=== PATIENT | male | born 1970 | race Caucasian/White ===

== ENCOUNTER → 2020-06-09 16:17 | Outpatient (BNVA) | payer MEDICAID, SELFPAY | PROVIDERS: Visit Provider Internal Medicine | DX: Z86.19 Personal history of other infectious and parasitic diseases (principal); B19.20 Unspecified viral hepatitis C without hepatic coma; Z12.11 Encounter for screening for malignant neoplasm of colon; Z01.812 Encounter for preprocedural laboratory examination | CPT/HCPCS: 80053; 85025; 87522 ==

== ENCOUNTER → 2020-06-14 09:44 | Outpatient (BNVA) | payer MEDICAID, SELFPAY | PROVIDERS: Visit Provider Internal Medicine | DX: Z20.828 Contact with and (suspected) exposure to other viral communicable diseases (principal); Z01.812 Encounter for preprocedural laboratory examination | CPT/HCPCS: 87635 ==

== ENCOUNTER 2020-06-20 09:11 | Day surgery (SDC) | payer MEDICAID, SELFPAY ==
--- NOTE | 2020-06-20 08:28 | W.PM.OPSUD ---
Surgery/Procedure H&P Update DATE OF PROCEDURE: June 20, 2020 DATE H&P PERFORMED: 06/09/20 PLANNED PROCEDURE: Operation Date: 06/20/20 10:00 Proposed Procedures p Colonoscopy 90724 z12.11(Not Applicable) - Jone Aguirre MD
[2020-06-20 09:27] VITALS: BP 162/99; PULSE 59; RESP 16; TEMP 36.5; O2SAT 97
[2020-06-20] MEDS: sodium chloride 0.9% 1,000 ML 30 ML IV (09:41)
--- NOTE | 2020-06-20 10:36 | ANES.PREANE2 ---
Pre-Anesthetic Assessment Pre-Anesthetic Assessment: Height/Weight: Height 1.7 m Weight 85.729 kg Temp Pulse Resp BP Pulse Ox 97.7 F 59 L 16 162/99 97 06/20/20 09:27 06/20/20 09:27 06/20/20 09:27 06/20/20 09:27 06/20/20 09:27 Preop Diagnosis: screening Proposed Procedure: Operation Date: 06/20/20 10:00 Proposed Procedures p Colonoscopy 36096 z12.11(Not Applicable) - Jone Aguirre MD Was Beta Ashlee taken within 24 hours: N/A Last intake: Intake Last Liquid Date 06/20/20 Last Liquid Time 06:00 Last Solid Date 06/19/20 Last Solid Time 12:00 Social: Social History: Alcohol (socially.) and Tobacco Comment: 3 cig. per day. Exam: Pre-Anes Outpt Exam: alert, oriented x 3 and clear to auscultation bilaterally Airway: Submandibular: WNL Cervical ROM: WNL MP: 2 Dentition: False History/ROS: No significant history except as noted Pulmonary: Pulmonary: Asthma : : None reported Hepatic: Hepatic: Hepatitis (C) GI: GI: None reported Metabolic: Metabolic: None reported Musc/skel: Musc/skel: None reported Neuropsych: Neuropsych: Anxiety and Depression Anesthetic Plan: ASA status: 2 Anesthesia: Anesthesia Evaluation and MAC Risk of > 500 ml blood loss (7ml/kg in children): No Meds/Allergies Current Medications: Current Medications Generic Name Dose Route Start Last Admin Trade Name Freq PRN Reason Stop Dose Admin Sodium Chloride 1,000 mls @ 30 ml s/hr 06/20/20 09:30 06/20/20 09:41 Sodium Chloride 0.9% IV 30 mls/hr .Q24H LUDWIN Administration PFSH Anesthesia PFSH: Social History (Updated 06/09/20 @ 13:54 by GENESIS Ni) Smoking and tobacco status: current every day smoker Alcohol intake: former Adopted: No Marital status: Single Number of children: 1 service: No History of recent travel: No Data Anesthesia Cardiac Studies: No Data to Display
[2020-06-20 11:04] VITALS: BP 118/87; PULSE 90; RESP 16; TEMP 36.5; O2SAT 97
[2020-06-20 11:18] VITALS: BP 120/92; PULSE 79; RESP 18; TEMP 36.5; O2SAT 96
--- NOTE | 2020-06-20 11:36 | ANE.PACU2 ---
Inpatient post-anesthesia follow up: Airway intact: Yes Vital signs: Temperature 97.7 F Pulse Rate 79 Respiratory Rate 18 Blood Pressure 120/92 Pulse Oximetry 96 Oxygen Delivery Me thod Room Air Oxygen Flow Rate 8 Fraction of Inspir ed Oxygen Hydration adequate: Yes Nausea and vomiting: No Pain level: 1 Mental status: Baseline
--- NOTE | 2020-06-20 13:59 | ANE.PACU2 ---
Inpatient post-anesthesia follow up: Airway intact: Yes Vital signs: Temperature 97.7 F Pulse Rate 79 Respiratory Rate 18 Blood Pressure 120/92 Pulse Oximetry 96 Oxygen Delivery Me thod Room Air Oxygen Flow Rate 8 Fraction of Inspir ed Oxygen Hydration adequate: Yes Nausea and vomiting: No Mental status: Baseline
== END 2020-06-20 11:52 | disposition home or self-care (01) ==
PROVIDERS: Visit Provider Internal Medicine
PROC: 0DJD8ZZ Inspection of Lower Intestinal Tract, Via Natural or Artificial Opening Endoscopic (ICD-10-PCS; CPT 45378; principal; 2020-06-20 10:00)
DX: Z12.11 Encounter for screening for malignant neoplasm of colon (principal); J45.909 Unspecified asthma, uncomplicated; Z86.19 Personal history of other infectious and parasitic diseases; F41.9 Anxiety disorder, unspecified; F32.9 Major depressive disorder, single episode, unspecified; F17.210 Nicotine dependence, cigarettes, uncomplicated
CPT/HCPCS: 12345; 45378; J2704; J3490; J7030

== ENCOUNTER 2020-06-30 10:01 | Emergency (ER) | payer MEDICAID, SELFPAY ==
[2020-06-30 10:06] VITALS: BP 132/90; PULSE 71; RESP 15; TEMP 36.3; O2SAT 97; BMI 30.5
--- NOTE | 2020-06-30 10:09 | XR_ITS ---
WS: [id number] RIGHT SHOULDER: 3 VIEW(S) TECHNIQUE: Internal and external rotation with Y view. HISTORY: rt shoulder pain s/p fall COMPARISON: None available. No fracture or dislocation or soft tissue abnormality. Moderate narrowing of the AC joint. Hypertrophic osteophytes from the distal clavicle. No fractures. XR/XR shoulder RT min 2V* 82012 IMPRESSION: 1. No shoulder fracture. 2. Moderate RIGHT AC joint arthritis.
--- NOTE | 2020-06-30 10:10 | ED_ITS ---
HPI - Extremity Injury (Upper) General: Chief Complaint: Fall Stated Complaint: fall, shoulder injury/pain Time Seen by Provider: 06/30/20 10:02 Source: patient Mode of arrival: ambulatory Limitations: no limitations History of Present Illness: HPI narrative: 50-year-old male patient presents to the emergency department by private auto, ambulatory due to right shoulder pain. He reports chronic bilateral shoulder pain by history. States slipped on wet tile at [place], landed on the right shoulder. This occurred Saturday, June 20, 2020. He reports pain has worsened since the fall. He reports pain is worse when arms are elevated and at night when he sleeps on the right shoulder. Reports 200 mg of ibuprofen is not effective with pain. He has a history of substance abuse and is currently receiving inpatient treatment/rehab. He denies weakness of the upper extremities. He reports denies radiculopathy symptoms. He denied hitting his head, denies back pain or neck pain. MD complaint: injury to: right and shoulder Onset (ago): day(s) (4) Other Extremity Injury: Right: shoulder Handedness: right Place: other ([place]) Severity: mild Severity scale (1-10): 3 Relieving factors: rest Exacerbating factors: other (lifting of the arms) Context: fall and other (chronic shoulder pain) Associated symptoms: Reports crepitus (at night and with movement, rt shoulder); Denies neck pain or weakness in extremities Treatments prior to arrival: NSAIDS Review of Systems General: Reports: 10 or more systems reviewed and unremarkable except in HPI and below Const: Denies: fever(s), chills, body aches, fatigue, malaise or diaphoresis Eyes: Denies: blurry vision or eye redness ENMT: Denies: throat pain, dental pain, dry mouth, halitosis or disequilibrium Card: Denies: chest pain, palpitations or irregular heart rhythm Resp: Denies: dyspnea, productive cough, non-productive cough or wheezing GI: Denies: abdominal pain, nausea or vomiting : Denies: dysuria Musc: Reports: joint pain; Denies: neck pain, back pain, muscle cramps or muscle weakness Skin/Breast: Denies: rash or pruritus Neuro: Denies: headache(s), weakness in extremities or behavioral changes Psych: Denies: anxiety, depression or hopelessness David/Lymph: Denies: easy bruising PFSH ED PFSH: Social History Smoking and tobacco status: light tobacco smoker Alcohol intake: former Substance/Drug Use: former Adopted: No Marital status: Single Number of children: 1 service: No History of recent travel: No Physical Exam Const: COMMON NORMALS: no acute distress, patient oriented x3, healthy appearing and alert GENERAL APPEARANCE: cooperative, comfortable and well hydrated HENMT: COMMON NORMALS: normocephalic, Normal external nose present and moist oral mucous membranes HEAD & SCALP: normocephalic NOSE: Normal external nose present Eye: COMMON NORMALS: Equal, round and reactive pupils present and EOMs intact bilaterally GENERAL EYE: appearance normal, both eyes and all related structures PUPIL: Yes Equal, round and reactive pupils present Neck/C-Spine: COMMON NORMALS: full ROM, no lymphadenopathy and supple GENERAL: Yes normal visual inspection, Yes trachea midline, No anterior neck swelling and No tender CERVICAL SPINE: Yes cervical ROM normal, No pain with cervical ROM, No Cervical spine tenderness, No Paracervical muscle tenderness, No Paracervical spasm and No Trapezius muscle tenderness Lymph: LYMPHATIC: no lymphadenopathy noted Chest: COMMONS NORMALS: normal inspection of the chest and normal palpation of entire chest wall Resp: COMMON NORMALS: normal respiratory effort, No retractions, No use of accessory muscles and clear to auscultation bilaterally EFFORT & INSPECTION: Yes able to speak in complete sentences, No labored, No Actively coughing and No audible wheezes AUSCULTATION: clear to auscultation bilaterally Cardio: COMMON NORMALS: regular rhythm, S1 normal heart sound present, S2 normal heart sound present and Peripheral pulses 2+ throughout RHYTHM: regular rhythm HEART SOUNDS: S1 normal heart sound present and S2 normal heart sound present PERIPHERAL PULSES: Peripheral pulses 2+ throughout GI: COMMON NORMALS: Soft to palpation and non-tender INSPECTION: Yes normal to inspection PALPATION: Yes Soft to palpation : COMMON NORMALS: Yes no CVA tenderness BLADDER/KIDNEY EXAM: Yes no CVA tenderness Back/Pelvis: COMMON NORMALS: no CVA tenderness and thoracic and lumbar spine normal to inspection Extremity: COMMON NORMALS: normal to inspection, full ROM, capillary refill normal, no joint enlargement, no clubbing, cyanosis or edema, no calf tenderness and no pedal edema GENERAL: Yes normal exam except as noted RIGHT UPPER EXTREMITY: Yes shoulder joint (pain to the anterior and posterior A/C joint) Right shoulder: Yes Right shoulder joint inspection exam (normal), Yes palpation, Yes Right shoulder joint ROM exam (full ROM noted), Yes Right shoulder joint neurovascular exam (distally intact) and Yes Right shoulder joint special tests Right shoulder special tests: Speed's test: Negative and Drop arm test: Negative LEFT UPPER EXTREMITY: Yes shoulder joint Left shoulder joint: Yes inspection (normal), Yes palpation (pain palpation of the ant/post A/C joint), Yes ROM (pain with shoulder /arm extension, abduction at 90 degrees) and Yes neurovascular exam (distally intact) Neuro: COMMON NORMALS: patient oriented x3 and no focal motor deficits SENSORIUM/ORIENTATION: Yes alert SPEECH: speech normal GAIT: Yes Normal gait present MOTOR EXAM: 5/5 motor strength present throughout, No Pronator motor function not present and No Abnormal motor strength present Psych: COMMON NORMALS: mental status grossly normal, Normal thought process present and cooperative ACTIVITY/MOTOR BEHAVIOR: Yes appropriate eye contact THOUGHT PROCESS: Normal thought process present Skin: COMMON NORMALS: no rashes or lesions noted and turgor normal GENERAL SKIN EXAM: no rashes or lesions noted and turgor normal Course Vital Signs: Vital signs: Vital Signs Temperature 97.3 F L 06/30/20 10:06 Pulse Rate 71 06/30/20 10:06 Respiratory Rate 16 06/30/20 11:09 Blood Pressure 132/90 06/30/20 10:06 Pulse Oximetry 97 06/30/20 10:06 MDM - Extremity Injury (Upper) Imaging Data^: Xray Ortho: Radiologist's impression: [address] [address] XRay Report Signed Patient: Nathan Sin Unit #: [id number] : 1970 Age/Sex: 50 / M ADM Date: 06/30/20 Loc: ER Room/Bed: Attending Dr: Ordering Provider/Ordering MD: Patrizia Bergman Date of Service: 06/30/20 Procedure(s): XR shoulder RT min 2V* [id number] Accession Number(s): [id number] Report Number: [id number] WS: [id number] RIGHT SHOULDER: 3 VIEW(S) TECHNIQUE: Internal and external rotation with Y view. HISTORY: rt shoulder pain s/p fall COMPARISON: None available. No fracture or dislocation or soft tissue abnormality. Moderate narrowing of the AC joint. Hypertrophic osteophytes from the distal clavicle. No fractures. XR/XR shoulder RT min 2V* [id number] IMPRESSION: 1. No shoulder fracture. 2. Moderate RIGHT AC joint arthritis. Dictated By: Olena Fish DO Signed By: Olena Fish DO Signed Date/Time: 06/30/20 1130 DD/ 1129 Discharge Plan Discharge Patient Disposition: Home Clinical Impression: Chronic shoulder pain Qualifiers: Laterality: bilateral Qualified Code(s): M25.511 - Pain in right shoulder Shoulder joint pain Qualifiers: Laterality: right Qualified Code(s): M25.511 - Pain in right shoulder Condition: Stable Prescriptions: New naproxen 500 mg tablet 500 mg PO BID PRN (Reason: pain) Qty: 30 RF: 0 No Action buspirone 5 mg tablet 10 mg PO TID RF: 0 aripiprazole 20 mg tablet 20 mg PO DAILY RF: 0 albuterol sulfate [Ventolin HFA] 90 mcg/actuation HFA aerosol inhaler 2 puff inhalation Q6H PRN (Reason: Wheezing) RF: 0 atorvastatin [Lipitor] 20 mg Tablet 20 mg PO DAILY RF: 0 venlafaxine 150 mg PO DAILY RF: 0 clonidine HCl 0.1 mg Tablet 0.1 mg PO BID PRN (Reason: Anxiety) RF: 0 hydroxyzine HCl 50 mg Tablet 50 mg PO TID RF: 0 prazosin 2 mg Capsule 2 mg PO QPM RF: 0 Discharge Orders: Discharge ED (Routine); Ordered 06/30/20 Ordered By: Patrizia Bergman Discharge Diet: Usual diet Discharge Activity: Resume usual activity Patient Instructions: Shoulder Dislocation Exercises (GEN), Rotator Cuff Injury (ED), Adhesive Capsulitis (ED), Opioid Safety Activity Restrictions/Additional Instructions: Follow up with primary care in 7-10 days for bilateral shoulder pain; Take naproxen with food to avoid stomach upset, do not take [id number] medication such as ibuprofen, Aleve, Advil as duplication of therapy can occur with dosing of naproxen. Further follow-up with orthopedic specialty may be needed Return to the ED for concerning symptoms or change of shoulder pain with abdominal pain Coding Level of Care Code ED Lgsw for Hunterg Fwd Exam Comprehensive
[2020-06-30 11:09] VITALS: RESP 16
== END 2020-06-30 11:09 | disposition home or self-care (01) ==
PROVIDERS: Emergency Provider Nurse Practitioner Family
DX: G89.29 Other chronic pain (principal); M25.511 Pain in right shoulder; F17.210 Nicotine dependence, cigarettes, uncomplicated
CPT/HCPCS: 73030; 99282